=== PATIENT | male | born 1960 | race Caucasian/White ===

== ENCOUNTER → 2018-01-14 | Outpatient (CLI) | payer OTHER ==
--- NOTE | 2018-01-14 10:30 | DIAGNOSTIC IMAGING REPORT ---
CT LUNG SCREENING, LOW DOSE WITH COMPUTER-AIDED DETECTION (CAD) CLINICAL HISTORY: Negative dependence. Smoking history. Lung cancer screening. COMPARISON STUDY: No previous studies for comparison. CT DOSE: 84.73 mGy.cm TECHNIQUE: Low-dose helical CT was acquired without intravenous contrast from lung apices to bases and reconstructed at 2.5 mm every 2 mm. CAD was utilized for this study. A dose lowering technique was utilized adhering to the principles of ALARA. FINDINGS: Thyroid: Imaged portions of the thyroid gland are normal in appearance. Thoracic aorta: There is mild atherosclerotic calcification of the thoracic aorta, which is normal in course caliber and demonstrates bovine variant arch anatomy. Heart: The heart is top normal in size and without pericardial effusion. Lungs and pleural spaces: Emphysematous change is seen in the upper lobes. The trachea and central airways are clear. There is no airspace consolidation typical for pneumonia or pleural effusion. No concerning pulmonary lesion is seen. Scattered calcified granulomas are identified. There are foci of subpleural opacification with architectural distortion seen in the lower lobes bilaterally. Milder similar-appearing findings are identified in the right middle lobe and lingula. Mediastinum: There is no mediastinal lymphadenopathy. Yumiko: Not well assessed without IV contrast. Axilla: Clear. Upper abdomen: There is a tiny hiatal hernia. Partially visualized upper abdominal viscera is otherwise grossly within normal limits. Skeletal structures: There are no lytic or blastic osseous lesions. There is a chronic-appearing and nonunited left 10th rib fracture. Degenerative change and hyperkyphosis are seen in the thoracic spine. Arthritic change is also present in the shoulders. IMPRESSION: 1. Emphysema. 2. There is no airspace consolidation typical for pneumonia or pleural effusion. 3. No concerning pulmonary lesion is identified. 4. There are foci of subpleural groundglass change with architectural distortion, greatest in the lower lobes. Milder similar appearing findings are seen in the right middle lobe and lingula. This could be related to atelectasis/scarring versus chronic lung disease. Clinical correlation will be required. Consider pulmonology follow-up if clinically warranted. CAD FINDINGS: Overall Lung RADS Category: 1 Lung RADS Management Recommendation: Continue annual lung cancer screening. Lung RADS Follow Up Date: 2019-01-14 Electronically signed by: Bola Gottlieb M.D. 01/14/2018 10:29 AM Dictated Date/Time: 01/14/2018 10:19 AM
== END | disposition home or self-care (01) ==
LOC: C.CTS 10:01
PROVIDERS: ATTEND Family Medicine
DX: Z87.891 Personal history of nicotine dependence (principal)

== ENCOUNTER 2023-11-10 17:59 | Observation (INO) ==
--- NOTE | 2023-11-10 18:09 | ED Triage Note ---
Date of Service November 10, 2023 Provider in Triage Author: Peg Payan History of Present Illness This patient was briefly evaluated while in triage. An abbreviated physical exam was performed. This patient is a 63-year-old Male who presents to the ED for evaluation of covid symptoms, pt tested positive at home today. Nasal congestion, headache, chest heaviness and shob. Physical Exam Initial orders for labs and / or imaging were placed and patient was placed in the waiting area until a bed is available. Please see further documentation for the full ED course.
[2023-11-10 18:49] LABS: Basophils # (auto) 0.03 K/uL (0.00-0.20); Basophils % (auto) 0.5 %; Eosinophils # (auto) 0.02 K/uL (0.00-0.50); Eosinophils % (auto) 0.3 %; Hematocrit (blood only) 44.7 % (42.0-52.0); Hemoglobin 14.9 g/dl (14.0-18.0); Immature Granulocytes # (auto) 0.03 K/uL (0.01-0.20); Immature Granulocytes % (auto) 0.5 %; Lymphocytes # (auto) 1.58 K/uL (1.20-3.40); Lymphocytes % (auto) 27.5 %; Mean Corpuscular Hemoglobin 30.2 pg (25.0-34.0); Mean Corpuscular Hgb Conc 33.3 g/dL (32.0-36.0); Mean Corpuscular Volume 90.5 fL (80.0-100.0); Monocytes # (auto) 0.81 K/uL (0.11-0.59); Monocytes % (auto) 14.1 %; Neutrophils # (auto) 3.27 K/uL (1.40-6.50); Neutrophils % (auto) 57.1 %; Platelet Count 113 K/uL (130-400); RDW Coefficient of Variation 13.5 % (11.5-14.5); RDW Standard Deviation 44.9 fL (36.4-46.3); Red Blood Count 4.94 M/uL (4.70-6.10); White Blood Count 5.74 K/ul (4.8-10.8)
[2023-11-10 19:01] LABS: Alanine Aminotransferase 13 U/L (7-52); Albumin Globulin Ratio 1.6 (0.9-2); Albumin Level 4.4 gm/dl (3.4-5.0); Alkaline Phosphatase 61 U/L (34-104); Anion Gap 7 (3-11); BUN Creatinine Ratio 9.8 (10-20); Bilirubin,Total 0.4 mg/dl (0.2-1.0); Blood Urea Nitrogen 9 mg/dl (6-23); Carbon Dioxide 30 mmol/L (21-32); Chloride 98 mmol/L (98-107); Creatinine Clr Calc Pharmacy 88.3 ml/min; Est GFR (African American) 101.5 ml/min; Est GFR (Non-African American) 87.6 ml/min; Globulin 2.7 gm/dl (2.5-4.0); Glucose 99 mg/dl (70-99(Fasting)); Sodium 135 mmol/L (136-145); Total Protein 7.1 gm/dl (6.0-8.3)
[2023-11-10 19:23] LABS: Adenovirus PCR Not Detected (NotDetected); Bordetella parapertussis PCR Not Detected (NotDetected); Bordetella pertussis PCR Not Detected (NotDetected); Chlamydia pneumoniae PCR Not Detected (NotDetected); Coronavirus 229E PCR Not Detected (NotDetected); Coronavirus HKU1 PCR Not Detected (NotDetected); Coronavirus NL63 PCR Not Detected (NotDetected); Coronavirus OC43PCR Not Detected (NotDetected); Human Metapneumovirus PCR Not Detected (NotDetected); Influenza A PCR Not Detected (NotDetected); Influenza B PCR Not Detected (NotDetected); Mycoplasma pneumoniae PCR Not Detected (NotDetected); Parainfluenza Virus 1 PCR Not Detected (NotDetected); Parainfluenza Virus 2 PCR Not Detected (NotDetected); Parainfluenza Virus 3 PCR Not Detected (NotDetected); Parainfluenza Virus 4 PCR Not Detected (NotDetected); Respiratory Syncytial VirusPCR Not Detected (NotDetected); Rhinovirus/Enterovirus PCR Not Detected (NotDetected)
[2023-11-10 19:30] LABS: Coronavirus CoV-2 (COVID19)PCR DETECTED (NotDetected)
--- NOTE | 2023-11-10 19:32 | XRay Report ---
SINGLE VIEW CHEST CLINICAL HISTORY: Dyspnea FINDINGS: A PA chest radiograph is compared to study dated 08/01/2018 and correlated with chest CT abigail ed 01/26/2023. The cardiomediastinal silhouette is unremarkable. Mild emphysema and chronic interstiti al thickening is similar to previous. There is bibasilar scarring/atelectasis. No airspace consolidat ion or pleural effusion is identified. No pneumothorax is seen. There are chronic/healed left-sided r ib fractures. IMPRESSION: Mild emphysematous change with no active disease in the chest. ACT 112: Negative or not required by law. Electronically signed by: Bola Gottlieb M.D. 11/10/2023 7:31 PM
--- NOTE | 2023-11-10 19:59 | Emergency Department Note ---
Impression & Plan Acute hypoxic respiratory failure, COVID-19, Shortness of breath ED Provider Note NAME: ILDA MCKEON AGE: 63 SEX: M : 1960 ARRIVES VIA: Walk-In INFORMANT: Patient ED PROVIDER(S): Stepan Caceres DO CHIEF COMPLAINT: cough congestion HPI: Patient is a 63-year-old male who presents to the ER for cough, congestion, and shortness of breath. He does have a history of COPD. Patient notes that symptoms started just under 2 weeks ago. Shortness of breath has been getting worse.. He notes intermittently he will get chest pain which are sharp and stabbing pains with coughing. Denies any belly pain, nausea, vomiting, or dysuria. Patient denies any fevers. No other exacerbating or remitting factors. ADDITIONAL HISTORY OBTAINED: Per HPI Chronic Medical/Social Conditions Affecting Care: Per HPI PAST MEDICAL HISTORY:See Below PAST SURGICAL HISTORY:See Below FAMILY HISTORY:See Below SOCIAL HISTORY:See Below HOME MEDICATIONS:See Below ALLERGIES:See Below VITALS:See Below PHYSICAL EXAMINATION: GENERAL: Sitting up in bed, alert, well appearing, well nourished, no distress, non-toxic, intermittent cough EYE EXAM: normal conjunctiva. OROPHARYNX: no exudate, no erythema, lips, buccal mucosa, and tongue normal and mucous membranes are moist NECK: supple, no nuchal rigidity, no adenopathy, non-tender LUNGS: Clear to auscultation. Normal chest wall mechanics HEART: no murmurs, S1 normal and S2 normal ABDOMEN: abdomen soft, non-tender, normo-active bowel sounds, no masses, no rebound or guarding. UPPER EXTREMITIES: upper extremities are grossly normal. LOWER EXTREMITIES: No pitting edema. NEURO EXAM: Normal sensorium, cranial nerves II-XII grossly intact, normal speech, no gross weakness of arms, no gross weakness of legs. MEDICAL DECISION MAKING: Patient is a 63-year-old male with a past medical history of COPD, anxiety, depression and diabetes and hypertension who presents to the ER for the above- stated complaint. IV was established blood work is obtained. He was found to be hypoxic upon presentation. Labs show no significant leukocytosis or anemia. BMP along with LFTs bilirubin was unremarkable. Troponin was negative. Viral panel was positive for COVID. Chest x-ray shows bilateral atelectasis. Patient was given neb treatments, steroids and updated bedside and placed on 2 L nasal cannula due to the hypoxia admitted and discussed with Dr. Arturo Triana for further evaluation. Consults/Care Managements Discussions: Per MDM Triage Nursing notes reviewed. Limited review of prior medical records performed Vital Signs: reviewed and remarkable for no significant abnormalities Differential diagnosis: Differential diagnoses includes but is not limited to pneumonia, bronchitis, COPD/Asthma exacerbation, pneumothorax, pulmonary embolism, congestive heart failure, acute coronary syndrome ER treatment provided: See below Diagnostics interpreted by me include EKG and cardiac monitoring as listed below: -Cardiac Monitoring: An order was placed for continuous cardiac monitoring. The monitor shows a rate of 80 with sinus rhythm. -ECG: Sinus rhythm rate 82 Normal axis QTc 429 Fusion complexes present -Laboratory studies:Interpreted by me as stated above in MDM and shown below. Imaging studies: Xrays: As interpreted by me: Portable AP upright 1 view of the chest shows no focal infiltrate CTs show: none Procedures:none Critical Care: I have personally spent 32 minutes of critical care time in the direct management of this patient. This includes bedside care, interpretation of diagnostic studies, and testing, discussion with consultants, patient, and family members, and other required patient management activities. This 32 minutes is in excess of all separately billable procedures. Past Med/Surg History Medical History (Updated 11/11/23 @ 00:59 by Stepan Caceres DO) Type 2 diabetes mellitus with peripheral neuropathy Chronic midline back pain COPD without exacerbation Anxiety and depression Heavy tobacco smoker Bilateral hearing loss Bilateral nonpulsatile tinnitus Gout Mixed hyperlipidemia Primary hypertension Type 2 diabetes mellitus Torn ACL History of colon polyps Medical marijuana use for neuropathy pain Gout HX Osteoarthritis Degenerative disc disease GERD (gastroesophageal reflux disease) Diabetes mellitus, type 2 Cancer SKIN CANCER Depression Anxiety Peripheral neuropathy Migraine Hypertension Chronic obstructive pulmonary disease Surgical History History of hemorrhoidectomy per pt hemorrhaged after procedure and had to have 9 units of blood History of anesthesia reaction WOKE UP IN MIDDLE OF COLONOSCOPY History of esophagogastroduodenoscopy (EGD) History of colonoscopy History of herniorrhaphy History of tooth extraction Family History Mother Family history of diabetes mellitus Myocardial infarction Father Family history of diabetes mellitus Myocardial infarction Brother Family history of pancreatic cancer Pancreatic cancer Bladder cancer Skin cancer Other No family history of adverse response to anesthesia No family history of bleeding disorder Denies family history of Ovarian cancer Prostate cancer Breast cancer Colorectal cancer Social History Smoking Status: Current every day smoker Tobacco Type: Cigarettes Age Started Using Tobacco: 7; packs per day: 1.5; Cigarettes Per Day: 20; Second Hand Exposure: No; Do You Dip or Chew Tobacco: No; Hx Alcohol Use: No Hx Substance Use: Yes (Medical marijuana) Prescribed Medications: Marijuana Last Used Substance: Hours (ago) Last Used Substance Other:: uses everyday Substance Use Type Other:: medical marijuana Preferred Language: Vietnamese Communication Ability: Effective Visual Impairment: No Limitations Engineering Scientist Required: No Beliefs That Will Affect Care: None marital status: Current Living Situation: Spouse current occupational status: retired Feels Safe at Home: Yes Childhood Exposure to Second-Hand Smoke: Yes Dental Care, Regularly: No Physical Activity Frequency: Does not Exercise Seatbelt Use: sometimes Sunscreen Use: Yes Assistive Devices: None Allergies Allergies Allergy/AdvReac Type Severity Reaction Status Date / Time aspirin AdvReac Unknown UPSET Verified 08/27/23 14:50 STOMACH hydrocodone AdvReac Unknown UPSET Verified 08/27/23 14:50 STOMACH oxycodone AdvReac Unknown UPSET Verified 08/27/23 14:50 STOMACH Home Meds Home Medications Medication Instructions Recorded Confirmed Medical Marijuana 1 dose UD 07/19/20 11/10/23 clonazepam 0.5 mg tablet 0.5 mg PO BID PRN anxiety 08/27/23 11/10/23 trazodone 100 mg tablet 200 mg PO HS 08/27/23 11/10/23 duloxetine 60 mg capsule,delayed 120 mg PO DAILY 11/10/23 11/10/23 release Previous Rx's Medication Instructions Recorded albuterol sulfate 90 mcg/actuation 2 puff inhalation 6XD PRN 11/20/22 aerosol inhaler (Proventil HFA) shortness of breath or wheezing #8.5 grams allopurinol 100 mg tablet 100 mg PO DAILY #90 tabs 11/20/22 amitriptyline 50 mg tablet 50 mg PO DAILY #90 tabs 11/20/22 amlodipine 5 mg tablet 5 mg PO DAILY #90 tabs 11/20/22 gabapentin 300 mg capsule 300 mg PO TID #270 caps 11/20/22 gabapentin 600 mg tablet 600 mg PO TID #270 tabs 11/20/22 metformin 500 mg tablet,extended 1,000 mg (2 x 500 mg) PO BID #360 11/20/22 release 24 hr tabs omeprazole 40 mg capsule,delayed 40 mg PO DAILY #90 caps 11/20/22 release rosuvastatin 40 mg tablet 40 mg PO DAILY #90 tabs 11/20/22 tamsulosin 0.4 mg capsule 0.4 mg PO HS #90 caps 11/20/22 tiotropium bromide 1.25 2 puff inhalation DAILY #4 grams 11/20/22 mcg/actuation mist for inhalation chlorthalidone 25 mg tablet 25 mg PO DAILY #90 tabs 12/14/22 naproxen 500 mg tablet 500 mg PO DAILY PRN Pain #90 tabs 09/08/23 Results & Data (ED) Vital Signs Vital Signs - 24 hr 11/10/23 18:08 11/10/23 19:38 11/10/23 19:39 Temperature 36.6 C Temperature Source Temporal Artery Scan Pulse Rate 81 71 Pulse Rate [Apical] 73 Respiratory Rate 18 20 Respiratory Effort / Characteristics Non-Labored Spontaneous Non-Labored Spontaneous Respiratory Depth Normal Normal Respiratory Pattern Regular Blood Pressure 131/89 Blood Pressure [Right Arm] 133/87 Blood Pressure Mean 103 Blood Pressure Mean [Right Arm] 102 Blood Pressure Position Sitting Pulse Oximetry 90 98 Oxygen Delivery Method Room Air Room Air Oxygen Flow Rate Sepsis Recent Fever Within 48 Hours Yes Sepsis New/Unexplained Change in Mental Status N/A Sepsis Action Taken by Nursing No Action Required Oxygen Flow Rate - Titration Pulse Oximetry Post Tiitration 11/10/23 21:00 11/10/23 21:04 11/10/23 23:00 Temperature Temperature Source Pulse Rate Pulse Rate [Apical] 77 73 Respiratory Rate 14 18 Respiratory Effort / Characteristics Non-Labored Spontaneous Non-Labored Respiratory Depth Normal Normal Respiratory Pattern Regular Blood Pressure Blood Pressure [Right Arm] 132/88 Blood Pressure Mean Blood Pressure Mean [Right Arm] 102 Blood Pressure Position Pulse Oximetry 93 88 L 93 Oxygen Delivery Method Nasal Cannula Room Air Nasal Cannula Nasal Cannula Oxygen Flow Rate 2 Sepsis Recent Fever Within 48 Hours Sepsis New/Unexplained Change in Mental Status Sepsis Action Taken by Nursing Oxygen Flow Rate - Titration 2 Pulse Oximetry Post Tiitration 94 11/10/23 23:30 Temperature Temperature Source Pulse Rate 79 Pulse Rate [Apical] Respiratory Rate Respiratory Effort / Characteristics Respiratory Depth Respiratory Pattern Blood Pressure Blood Pressure [Right Arm] Blood Pressure Mean Blood Pressure Mean [Right Arm] Blood Pressure Position Pulse Oximetry Oxygen Delivery Method Oxygen Flow Rate Sepsis Recent Fever Within 48 Hours Sepsis New/Unexplained Change in Mental Status Sepsis Action Taken by Nursing Oxygen Flow Rate - Titration Pulse Oximetry Post Tiitration Laboratory Data 11/10/23 18:27 11/10/23 19:33 Lab Results 11/10/23 11/10/23 11/10/23 Range/Units 18:17 18:27 19:33 WBC 5.74 (4.8-10.8) K/ul RBC 4.94 (4.70-6.10) M/uL Hgb 14.9 (14.0-18.0) g/dl Hct 44.7 (42.0-52.0) % MCV 90.5 (80.0-100.0) fL MCH 30.2 (25.0-34.0) pg MCHC 33.3 (32.0-36.0) g/dL RDW Std Deviation 44.9 (36.4-46.3) fL RDW Coeff of Facundo 13.5 (11.5-14.5) % Plt Count 113 L (130-400) K/uL MPV 11.0 (9.4-12.4) fL Immature Gran % (Auto) 0.5 % Neut % (Auto) 57.1 % Lymph % (Auto) 27.5 % [place] % (Auto) 14.1 % Eos % (Auto) 0.3 % Baso % (Auto) 0.5 % Neut # (Auto) 3.27 (1.40-6.50) K/uL Lymph # (Auto) 1.58 (1.20-3.40) K/uL [place] # (Auto) 0.81 H (0.11-0.59) K/uL Eos # (Auto) 0.02 (0.00-0.50) K/uL Baso # (Auto) 0.03 (0.00-0.20) K/uL Immature Gran # (Auto) 0.03 (0.01-0.20) K/uL Sodium 135 L (136-145) mmol/L Potassium TNP 3.7 Chloride 98 (98-107) mmol/L Carbon Dioxide 30 (21-32) mmol/L Anion Gap 7 (3-11) BUN 9 (6-23) mg/dl Creatinine 0.92 (0.6-1.4) mg/dl Est Cr Clr Drug Dosing 88.3 ml/min Est GFR ( Amer) 101.5 ml/min Est GFR (Non-Af Amer) 87.6 ml/min BUN/Creatinine Ratio 9.8 L (10-20) Glucose 99 (70-99(Fasting)) mg/dl Calcium 9.0 (8.6-10.3) mg/dl Total Bilirubin 0.4 (0.2-1.0) mg/dl AST TNP 20 ALT 13 (7-52) U/L Alkaline Phosphatase 61 (34-104) U/L Troponin I High Sens 3.0 (0-20) pg/ml Total Protein 7.1 (6.0-8.3) gm/dl Albumin 4.4 (3.4-5.0) gm/dl Globulin 2.7 (2.5-4.0) gm/dl Albumin/Globulin Ratio 1.6 (0.9-2) Adenovirus (PCR) Not Detected (NotDetected) B. pertussis DNA (PCR) Not Detected (NotDetected) B.parapertussis DNA PCR Not Detected (NotDetected) C. pneumoniae DNA (PCR) Not Detected (NotDetected) Coronavirus OC43 (PCR) Not Detected (NotDetected) Coronavirus HKU1 (PCR) Not Detected (NotDetected) Coronavirus 229E (PCR) Not Detected (NotDetected) SARS-CoV-2 (PCR) DETECTED A* (NotDetected) Coronavirus NL63 (PCR) Not Detected (NotDetected) Human Metapneumovir PCR Not Detected (NotDetected) Influenza Type A (PCR) Not Detected (NotDetected) Influenza Type B (PCR) Not Detected (NotDetected) M. pneumoniae (PCR) Not Detected (NotDetected) Parainfluenza 1 (PCR) Not Detected (NotDetected) Parainfluenza 2 (PCR) Not Detected (NotDetected) Parainfluenza 3 (PCR) Not Detected (NotDetected) Parainfluenza 4 (PCR) Not Detected (NotDetected) RSV (PCR) Not Detected (NotDetected) Entero/Rhino (PCR) Not Detected (NotDetected) Administered Medications Discontinued Medications Albuterol (Albuterol 0.083% Nebu Soln 3 Ml Vial) 5 mg NEB NOW STA; Protocol Stop: 11/10/23 21:29 Last Admin: 11/10/23 21:31 Dose: 5 mg Documented By: KENNEDY Dexamethasone Sodium Phosphate (DexamethasonePf 10 Mg/Ml Vial) 6 mg IV NOW ONE Stop: 11/10/23 20:03 Last Admin: 11/10/23 20:08 Dose: 6 mg Documented By: KENNEDY Imaging Data Radiologist's Impression: Chest X-Ray 11/10/23 18:08 SINGLE VIEW CHEST CLINICAL HISTORY: Dyspnea FINDINGS: A PA chest radiograph is compared to study dated 08/01/2018 and correlated with chest CT dated 01/26/2023. The cardiomediastinal silhouette is unremarkable. Mild emphysema and chronic interstitial thickening is similar to previous. There is bibasilar scarring/atelectasis. No airspace consolidation or pleural effusion is identified. No pneumothorax is seen. There are chronic/healed left-sided rib fractures. IMPRESSION: Mild emphysematous change with no active disease in the chest. ACT 112: Negative or not required by law. Electronically signed by: Bola Gottlieb M.D. 11/10/2023 7:31 PM Discharge Plan Visit Data Chief Complaint: Flu Like Symptoms Stated Complaint: CHEST CONGESTION, DIARREAH, TIRED, COUGH ED Provider: Stepan Caceres Discharge Problem: Acute hypoxic respiratory failure, COVID-19, Shortness of breath Forms Stand Alone Forms: [facility] [place] Labs Prescriptions Prescriptions: No Action naproxen 500 mg tablet 500 mg PO DAILY PRN (Reason: Pain) Qty: 90 1RF chlorthalidone 25 mg tablet 25 mg PO DAILY Qty: 90 3RF clonazepam 0.5 mg tablet 0.5 mg PO BID PRN (Reason: anxiety) trazodone 100 mg tablet 200 mg PO HS albuterol sulfate [Proventil HFA] 90 mcg/actuation HFA aerosol inhaler 2 puff inhalation 6XD PRN (Reason: shortness of breath or wheezing) Qty: 8.5 3RF allopurinol 100 mg tablet 100 mg PO DAILY Qty: 90 3RF amitriptyline 50 mg tablet 50 mg PO DAILY Qty: 90 3RF amlodipine 5 mg tablet 5 mg PO DAILY Qty: 90 3RF gabapentin 600 mg tablet 600 mg PO TID Qty: 270 3RF Rx Instructions: Take in addition to 300mg pill for total 900mg TID gabapentin 300 mg capsule 300 mg PO TID Qty: 270 3RF Rx Instructions: Take with 600mg capsule for 900mg TID. metformin 500 mg tablet extended release 24 hr 1,000 mg PO BID Qty: 360 3RF omeprazole 40 mg capsule,delayed release(DR/EC) 40 mg PO DAILY Qty: 90 3RF rosuvastatin 40 mg tablet 40 mg PO DAILY Qty: 90 3RF tamsulosin 0.4 mg capsule 0.4 mg PO HS Qty: 90 3RF tiotropium bromide 1.25 mcg/actuation mist 2 puff inhalation DAILY Qty: 4 2RF Medical Marijuana 1 dose UD duloxetine 60 mg capsule,delayed release(DR/EC) 120 mg PO DAILY Referrals Referrals: Maryam Gonzalez MD [Primary Care Provider] -
[2023-11-10] MEDS ORDERED: dexAMETHasone**PF** 10 MG/ML VIAL IV ONE (20:02)
[2023-11-10 20:17] LABS: Potassium 3.7 mmol/L (3.5-5.1)
--- NOTE | 2023-11-10 21:17 | History & Physical Report ---
Date of Service November 10, 2023 Assessment & Plan (1) COVID: Plan: Worsening cough, BRUNO, fatigue, chills, sore throat x 1 week COVID+ on arrival Isolation precautions in place No leukocytosis; afebrile CXR revealed mild emphysematous changes with no active disease in the chest EKG revealed sinus rhythm with fusion complexes at 82 bpm; QTc 429 Will defer remdesivir at this time as patient's symptoms are outside the window for treatment Supplemental oxygen as needed to maintain SpO2 greater than 94% Dexamethasone 6 mg IV QAM A.m. CBC, BMP (2) Anxiety and depression: Plan: Continue duloxetine, amitriptyline Continue clonazepam as needed (3) Type 2 diabetes mellitus: Plan: Last A1c 6.3% on 08/27/2023; no need to repeat Hold metformin Recommend Lantus 15u BID while inpatient (given steroid use) SSI; with target BSG range [id number], CF 25, carb ratio 10 T2DM diet BSG ACHS Adjust regimen as needed Pharmacy glycemic consult given that patient will be on steroids and is insulin dea (4) Peripheral neuropathy: Plan: With chronic back pain and arthritis Continue gabapentin (5) Heavy tobacco smoker: Plan: Current tobacco cigarette smoker; 1 PPD Patient declined NRT patch at the admission as he reports that usually do not help; can be provided if needed (6) Mixed hyperlipidemia: Plan: Continue rosuvastatin (7) Primary hypertension: Plan: Continue amlodipine (8) Gout: Plan: Continue allopurinol Plan [facility]: [facility] DNR/DNI T2DM diet VTE PPx: SCDs, Lovenox 40 mg SQ q24h History of Present Illness Chief Complaint: COVID Primary Care Provider: Maryam Gonzalez MD Vick is a 63-year-old male with PMH of T2DM, HTN, gout, current everyday tobacco use, anxiety and depression, SNHL, and COPD. He presented for worsening SOB, fatigue, cough, sore throat, fever and chills x 1 week. Patient was positive for COVID on arrival. He does not use at home oxygen. He has been using cough drops and the can decongestant for his sinuses at home to help with symptoms. He has not had any COVID shots or boosters. He is a current everyday tobacco cigarette smoker; 1 PPD; he also uses medical marijuana. He denies vaping, alcohol use, and other recreational drug use. Of note, the patient's is on supplemental oxygen at home (3-4L NC) for COPD and emphysema. She is also positive with COVID and present in the room. The patient reports that he took all of his morning medications today. Patient is 92% SpO2 on 2L NC at time of admission; vitals otherwise stable. ED Course: Albuterol neb 5 mg Decadron 6 mg IV ROS: Patient endorses fatigue, chills, BRUNO, sore throat, dry cough, abdominal cramping, nausea, diarrhea, and nausea. Patient denies fever, chest pain, chest palpitations, or vomiting. Allergies Allergy/AdvReac Type Severity Reaction Status Date / Time aspirin AdvReac Unknown UPSET Verified 08/27/23 14:50 STOMACH hydrocodone AdvReac Unknown UPSET Verified 08/27/23 14:50 STOMACH oxycodone AdvReac Unknown UPSET Verified 08/27/23 14:50 STOMACH Home Medications Medication Instructions Recorded Confirmed Type Medical Marijuana 1 dose UD 07/19/20 11/10/23 History albuterol sulfate 90 mcg/actuation 2 puff inhalation 6XD PRN 11/20/22 11/10/23 Rx aerosol inhaler (Proventil HFA) shortness of breath or wheezing #8.5 grams allopurinol 100 mg tablet 100 mg PO DAILY #90 tabs 11/20/22 11/10/23 Rx amitriptyline 50 mg tablet 50 mg PO DAILY #90 tabs 11/20/22 11/10/23 Rx amlodipine 5 mg tablet 5 mg PO DAILY #90 tabs 11/20/22 11/10/23 Rx gabapentin 300 mg capsule 300 mg PO TID #270 caps 11/20/22 11/10/23 Rx gabapentin 600 mg tablet 600 mg PO TID #270 tabs 11/20/22 11/10/23 Rx metformin 500 mg tablet,extended 1,000 mg (2 x 500 mg) PO BID #360 11/20/22 11/10/23 Rx release 24 hr tabs omeprazole 40 mg capsule,delayed 40 mg PO DAILY #90 caps 11/20/22 11/10/23 Rx release rosuvastatin 40 mg tablet 40 mg PO DAILY #90 tabs 11/20/22 11/10/23 Rx tamsulosin 0.4 mg capsule 0.4 mg PO HS #90 caps 11/20/22 11/10/23 Rx tiotropium bromide 1.25 2 puff inhalation DAILY #4 grams 11/20/22 11/10/23 Rx mcg/actuation mist for inhalation chlorthalidone 25 mg tablet 25 mg PO DAILY #90 tabs 12/14/22 11/10/23 Rx clonazepam 0.5 mg tablet 0.5 mg PO BID PRN anxiety 08/27/23 11/10/23 History trazodone 100 mg tablet 200 mg PO HS 08/27/23 11/10/23 History naproxen 500 mg tablet 500 mg PO DAILY PRN Pain #90 tabs 09/08/23 11/10/23 Rx duloxetine 60 mg capsule,delayed 120 mg PO DAILY 11/10/23 11/10/23 History release Past Med/Surg History Medical History (Updated 11/11/23 @ 00:59 by Stepan Caceres DO) Type 2 diabetes mellitus with peripheral neuropathy Chronic midline back pain COPD without exacerbation Anxiety and depression Heavy tobacco smoker Bilateral hearing loss Bilateral nonpulsatile tinnitus Gout Mixed hyperlipidemia Primary hypertension Type 2 diabetes mellitus Torn ACL History of colon polyps Medical marijuana use for neuropathy pain Gout HX Osteoarthritis Degenerative disc disease GERD (gastroesophageal reflux disease) Diabetes mellitus, type 2 Cancer SKIN CANCER Depression Anxiety Peripheral neuropathy Migraine Hypertension Chronic obstructive pulmonary disease Surgical History History of hemorrhoidectomy per pt hemorrhaged after procedure and had to have 9 units of blood History of anesthesia reaction WOKE UP IN MIDDLE OF COLONOSCOPY History of esophagogastroduodenoscopy (EGD) History of colonoscopy History of herniorrhaphy History of tooth extraction Family History Mother Family history of diabetes mellitus Myocardial infarction Father Family history of diabetes mellitus Myocardial infarction Brother Family history of pancreatic cancer Pancreatic cancer Bladder cancer Skin cancer Other No family history of adverse response to anesthesia No family history of bleeding disorder Denies family history of Ovarian cancer Prostate cancer Breast cancer Colorectal cancer Social History Smoking Status: Current every day smoker Tobacco Type: Cigarettes Age Started Using Tobacco: 7; packs per day: 1.5; Cigarettes Per Day: 20; Second Hand Exposure: No; Do You Dip or Chew Tobacco: No; Hx Alcohol Use: No Hx Substance Use: Yes (Medical marijuana) Prescribed Medications: Marijuana Last Used Substance: Hours (ago) Last Used Substance Other:: uses everyday Substance Use Type Other:: medical marijuana Preferred Language: Upper Sorbian Communication Ability: Effective Visual Impairment: No Limitations Machine Captain Required: No Beliefs That Will Affect Care: None marital status: Current Living Situation: Spouse current occupational status: retired Feels Safe at Home: Yes Childhood Exposure to Second-Hand Smoke: Yes Dental Care, Regularly: No Physical Activity Frequency: Does not Exercise Seatbelt Use: sometimes Sunscreen Use: Yes Assistive Devices: None Review of Systems Review of Systems: See HPI above Physical Exam Physical Exam: General: no acute distress; quiet, reserved nature; non-toxic appearing; well- nourished; cooperative HEENT: normocephalic, atraumatic; no scleral icterus; PERRLA w/ EOMs intact; dry mucus membrane; vision and hearing grossly intact Neck: supple; no lymphadenopathy; trachea midline Skin: warm, dry without signs of tenting; no cyanosis; no rashes, bruising, lesions, or erythema noted CV: chest wall NTP; RRR; S1/S2 normal; no murmurs/rubs/gallops; pulses intact and symmetric at radial, DP, and PT Lungs: no acute respiratory distress; symmetrical chest wall expansion; clear breath sounds across all lung stark w/o adventitious sounds; no wheezing ABD: Soft, NTP; BS present; no rebound/guarding; no ascites; no distention; negative CVA tenderness MSK: no tics or fasciculations; no edema noted in the LEs b/l, nonerythematous Neuro: A&Ox3; normal mood and affect; fluent speech; no focal deficits; sensation grossly intact in LEs B/L Results & Data Results & Data Vital Signs (Past 12 Hours) Vital Signs Temp Pulse Pulse Resp BP BP Pulse Ox 11/10/23 21:04 88 L 11/10/23 19:39 73 20 133/87 98 11/10/23 19:38 71 11/10/23 18:08 36.6 C 81 18 131/89 90 O2 Del Method 11/10/23 21:04 Room Air, Nasal Cannula 11/10/23 19:39 Room Air 11/10/23 19:38 11/10/23 18:08 Room Air Laboratory Results Abnormal lab results 11/10/23 11/10/23 Range/Units 18:17 18:27 Plt Count 113 L (130-400) K/uL [place] # (Auto) 0.81 H (0.11-0.59) K/uL Sodium 135 L (136-145) mmol/L BUN/Creatinine Ratio 9.8 L (10-20) SARS-CoV-2 (PCR) DETECTED A* (NotDetected) Diagnostic Findings Chest X-Ray 11/10/23 18:08 SINGLE VIEW CHEST CLINICAL HISTORY: Dyspnea FINDINGS: A PA chest radiograph is compared to study dated 08/01/2018 and correlated with chest CT dated 01/26/2023. The cardiomediastinal silhouette is unremarkable. Mild emphysema and chronic interstitial thickening is similar to previous. There is bibasilar scarring/atelectasis. No airspace consolidation or pleural effusion is identified. No pneumothorax is seen. There are chronic/healed left-sided rib fractures. IMPRESSION: Mild emphysematous change with no active disease in the chest. ACT 112: Negative or not required by law. Electronically signed by: Bola Gottlieb M.D. 11/10/2023 7:31 PM Code Status & VTE Plan Code Status DNR/DNI VTE Prophylaxis Plan VTE Prophylaxis will be ordered: Yes Supervising Physician Co-Signing Physician Notes Attending addendum: I have physically seen this patient, have supervised the JOCELIN's activities, and agree with the H&P unless as otherwise noted. Assessment and Plan: COPD exacerbation/COVID-19 infection with hypoxia- Admit to monitored bed 1 week of worsening cough, dyspnea exertion, fatigue and chills Given dexamethasone IV in ED Continue dexamethasone 6 mg IV every morning Duonebs every 4 hours while awake and every 2 hours when necessary. Patient does not qualify for remdesivir due to timeframe, however, may benefit from Paxlovid as an outpatient Nasal cannula oxygen, titrate to keep pulse ox around 94% Diabetes mellitus- Hold metformin Lantus as ordered NovoLog with SSI as noted Expect some worsening while on dexamethasone Anxiety and depression- Continue duloxetine, amitriptyline and clonazepam Remaining orders and notations as noted PG Care Time/CCT Total # of Minutes Spent Total Time Spent with Patient: Total time spent is greater than 50% in coordination of care (as documented) at patient's floor/unit and/or counseling patient: [place] [address] INT INP/OBS CARE 2/55MIN Patient Type Established Medical Decision Making Moderate Complexity Diagnoses COVID U07.1 Anxiety and depression F41.9; F32.A Type 2 diabetes mellitus E11.9 Peripheral neuropathy G62.9 Heavy tobacco smoker F17.200 Mixed hyperlipidemia E78.2 Primary hypertension I10 Gout M10.9
[2023-11-10] MEDS ORDERED: ALBUTEROL 0.083% NEBU SOLN 3 ML VIAL NEB STA (21:28)
--- NOTE | 2023-11-11 13:53 | Electrocardiogram Report ---
Test Reason : Blood Pressure : / mmHG Vent. Rate : 082 BPM Atrial Rate : 082 BPM P-R Int : 140 ms QRS Dur : 104 ms QT Int : 368 ms P-R-T Axes : 044 093 028 degrees QTc Int : 429 ms Sinus rhythm with Fusion complexes Rightward axis Borderline ECG When compared with ECG of 01-AUG-2018 17:04, Fusion complexes are now Present Non-specific change in ST segment in Anterior leads Confirmed by Julien Carvajal ([id number]) on 11/11/2023 1:53:05 PM Referred By: REFERRED SELF Confirmed By:Julien Carvajal
--- NOTE | 2023-11-12 10:44 | Discharge Summary ---
Discharge Summary Date of Service November 12, 2023 Admission HPI Per Admitting Provider Vick is a 63-year-old male with PMH of T2DM, HTN, gout, current everyday tobacco use, anxiety and depression, SNHL, and COPD. He presented for worsening SOB, fatigue, cough, sore throat, fever and chills x 1 week. Patient was positive for COVID on arrival. He does not use at home oxygen. He has been using cough drops and the can decongestant for his sinuses at home to help with symptoms. He has not had any COVID shots or boosters. He is a current everyday tobacco cigarette smoker; 1 PPD; he also uses medical marijuana. He denies vaping, alcohol use, and other recreational drug use. Of note, the patient's is on supplemental oxygen at home (3-4L NC) for COPD and emphysema. She is also positive with COVID and present in the room. The patient reports that he took all of his morning medications today. Patient is 92% SpO2 on 2L NC at time of admission; vitals otherwise stable. ED Course: Albuterol neb 5 mg Decadron 6 mg IV ROS: Patient endorses fatigue, chills, BRUNO, sore throat, dry cough, abdominal cramping, nausea, diarrhea, and nausea. Patient denies fever, chest pain, chest palpitations, or vomiting. Principal Dx & Hospital Course #1 = Principal Diagnosis (1) COVID: Summary: 1. Patient with COVID came in for continuation of symptoms x 1 week 2. Patient left AMA with (also COVID+) around 0100 on 11/11 3. Patient was not seen by hospitalist rounding team Worsening cough, BRUNO, fatigue, chills, sore throat x 1 week COVID+ on arrival Isolation precautions in place No leukocytosis; afebrile CXR revealed mild emphysematous changes with no active disease in the chest EKG revealed sinus rhythm with fusion complexes at 82 bpm; QTc 429 Will defer remdesivir at this time as patient's symptoms are outside the window for treatment Supplemental oxygen as needed to maintain SpO2 greater than 94% Dexamethasone 6 mg IV QAM A.m. CBC, BMP (2) Anxiety and depression: Continue duloxetine, amitriptyline Continue clonazepam as needed (3) Type 2 diabetes mellitus: Last A1c 6.3% on 08/27/2023; no need to repeat Hold metformin Recommend Lantus 15u BID while inpatient (given steroid use) SSI; with target BSG range [id number], CF 25, carb ratio 10 T2DM diet BSG ACHS Adjust regimen as needed Pharmacy glycemic consult given that patient will be on steroids and is insulin dea (4) Peripheral neuropathy: With chronic back pain and arthritis Continue gabapentin (5) Heavy tobacco smoker: Current tobacco cigarette smoker; 1 PPD Patient declined NRT patch at the admission as he reports that usually do not help; can be provided if needed (6) Mixed hyperlipidemia: Continue rosuvastatin (7) Primary hypertension: Continue amlodipine (8) Gout: Continue allopurinol Plan Disposition: Obs -admit to [facility] telemetry DNR/DNI T2DM diet VTE PPx: SCDs, Lovenox 40 mg SQ q24h Discharge Exam Not performed Updated Medication List Medication Instructions Recorded Confirmed Type Medical Marijuana 1 dose UD 07/19/20 11/10/23 History albuterol sulfate 90 mcg/actuation 2 puff inhalation 6XD PRN 11/20/22 11/10/23 Rx aerosol inhaler (Proventil HFA) shortness of breath or wheezing #8.5 grams allopurinol 100 mg tablet 100 mg PO DAILY #90 tabs 11/20/22 11/10/23 Rx amitriptyline 50 mg tablet 50 mg PO DAILY #90 tabs 11/20/22 11/10/23 Rx amlodipine 5 mg tablet 5 mg PO DAILY #90 tabs 11/20/22 11/10/23 Rx gabapentin 300 mg capsule 300 mg PO TID #270 caps 11/20/22 11/10/23 Rx gabapentin 600 mg tablet 600 mg PO TID #270 tabs 11/20/22 11/10/23 Rx metformin 500 mg tablet,extended 1,000 mg (2 x 500 mg) PO BID #360 11/20/22 11/10/23 Rx release 24 hr tabs omeprazole 40 mg capsule,delayed 40 mg PO DAILY #90 caps 11/20/22 11/10/23 Rx release rosuvastatin 40 mg tablet 40 mg PO DAILY #90 tabs 11/20/22 11/10/23 Rx tamsulosin 0.4 mg capsule 0.4 mg PO HS #90 caps 11/20/22 11/10/23 Rx tiotropium bromide 1.25 2 puff inhalation DAILY #4 grams 11/20/22 11/10/23 Rx mcg/actuation mist for inhalation chlorthalidone 25 mg tablet 25 mg PO DAILY #90 tabs 12/14/22 11/10/23 Rx clonazepam 0.5 mg tablet 0.5 mg PO BID PRN anxiety 08/27/23 11/10/23 History trazodone 100 mg tablet 200 mg PO HS 08/27/23 11/10/23 History naproxen 500 mg tablet 500 mg PO DAILY PRN Pain #90 tabs 09/08/23 11/10/23 Rx duloxetine 60 mg capsule,delayed 120 mg PO DAILY 11/10/23 11/10/23 History release prednisone 20 mg tablet 40 mg (2 x 20 mg) PO DAILY 5 days 11/11/23 Rx #10 tabs Hospital Stay Data Consultations 11/10/23 21:12 ED Decision to Admit Stat Pending Results Patient Have Any Pending Studies at Discharge: No Discharge Instructions Given to Patient (Per Discharging Provider) AMA Total Time Total Time Spent Total Time Spent (In Minutes): 15 Supervising Physician Co-Signing Physician Notes Attending addendum: The patient was determined to be able to make an informed decision regarding leaving the hospital AMA. He was aware that his clinical condition could worsen, and that he should return to the hospital if needed. [place] [address] INP/OBS DISCH >30 MIN Patient Type Established Medical Decision Making Straight Forward Diagnoses COVID U07.1 Anxiety and depression F41.9; F32.A Type 2 diabetes mellitus E11.9 Peripheral neuropathy G62.9 Heavy tobacco smoker F17.200 Mixed hyperlipidemia E78.2 Primary hypertension I10 Gout M10.9
== END 2023-11-11 01:14 | disposition left against medical advice (07) ==
LOC: EDINP 17:59 → ED 17:59 → EDINP 11-11 01:03